=== PATIENT | female | born 1965 | race Asian ===

== ENCOUNTER 2021-03-18 19:03 | Emergency (ER) | payer SELFPAY ==
[~2021-03-18] VITALS: Ht 170.2 cm; Wt 70.0 kg
[2021-03-18] MEDS ORDERED: IBUPROFEN 600MG TABLET PO STA (19:24)
[2021-03-18] MEDS ORDERED: SODIUM CHLORIDE 0.9% 1,000 ML IV ONE (19:30)
[2021-03-18 20:04] LABS: BASOPHILS % 0.4 % (0.0-2.0); EOSINOPHILS % 1.1 % (0.0-5.0); HEMOGLOBIN. 13.1 g/dL (12.0-16.0); LYMPHOCYTES % 29.4 % (20.0-50.0); MEAN CORPUSCULAR HEMOGLOBIN 28.6 pg (28.0-32.0); MEAN CORPUSCULAR VOLUME 87.4 fL (81.0-99.0); MEAN PLATELET VOLUME 8.2 fl (7.4-10.4); MONOCYTES % 9.6 % (2.0-8.0); NEUTROPHILS % 59.5 % (40.0-76.0); PLATELET 221 x1000/uL (130-400); RED BLOOD CELL COUNT 4.58 mill/uL (4.2-5.4); RED CELL DISTRIBUTION WIDTH 12.9 % (11.6-14.6)
[2021-03-18 20:12] LABS: CHLORIDE 102 mEq/L (98-107)
[2021-03-18 21:50] VITALS: BP 130/78
== END 2021-03-18 22:23 | disposition home or self-care (01) ==
LOC: ER 19:03
DX: B34.9 Viral infection, unspecified (principal); Z20.822 Contact with and (suspected) exposure to COVID-19; Z98.890 Other specified postprocedural states
CPT/HCPCS: 36415; 71045; 80053; 85025; 87426; 87804; 93005; 96360; 99285; J7030

== ENCOUNTER 2021-11-26 09:23 | Emergency (ER) | payer MEDICAID, OTHER ==
[~2021-11-26] VITALS: Ht 160 cm; Wt 72.0 kg
[2021-11-26] MEDS ORDERED: LIDOCAINE HCL/PF 1% 10 MG/ML 5ML VIAL INFIL ONE (12:45)
[2021-11-26] MEDS ORDERED: IBUPROFEN 400MG TABLET PO ONE (12:45)
[2021-11-26 12:53] VITALS: BP 162/69
[2021-11-26] MEDS ORDERED: POLY119P2 MT (14:01)
[2021-11-26] MEDS ORDERED: LIDO15CR6 TP (14:01)
[2021-11-26] MEDS ORDERED: HYDR30CR80 TP (14:01)
[2021-11-26] MEDS ORDERED: IBUP-2028 MT (14:01)
== END 2021-11-26 14:36 | disposition home or self-care (01) ==
LOC: ER 09:46
DX: K64.5 Perianal venous thrombosis (principal); R03.0 Elevated blood-pressure reading, without diagnosis of hypertension; Z87.09 Personal history of other diseases of the respiratory system
CPT/HCPCS: 10060; 99283; J3490; Z7610

== ENCOUNTER 2024-08-17 02:15 | Emergency (ER) | payer MEDICAID, OTHER ==
[~2024-08-17] VITALS: Ht 170.2 cm; Wt 73.0 kg
[~2024-08-17 02:15] MED LIST: HYDR30CR80 TP; IBUP-2028 MT; LIDO15CR6 TP; POLY119P2 MT
[2024-08-17 02:42] VITALS: O2SAT 99
[2024-08-17 04:38] VITALS: BP 141/84; PULSE 68; RESP 18; TEMP 36.7; O2SAT 96
== END 2024-08-17 05:52 | disposition home or self-care (01) ==
LOC: ER 02:15
DX: S06.0X0A Concussion without loss of consciousness, initial encounter (principal); S09.8XXA Other specified injuries of head, initial encounter; Z79.899 Other long term (current) drug therapy; X58.XXXA Exposure to other specified factors, initial encounter; Y93.89 Activity, other specified; Y92.89 Other specified places as the place of occurrence of the external cause; Y99.8 Other external cause status
CPT/HCPCS: 71045; 93005; 99284

== ENCOUNTER 2024-08-19 01:51 | Emergency (ER) | payer MEDICAID ==
[~2024-08-19] VITALS: Ht 162.6 cm; Wt 64.0 kg
[2024-08-19 01:54] VITALS: BP 124/84; PULSE 93; RESP 16; TEMP 36.6; O2SAT 98
== END 2024-08-19 03:40 | disposition left against medical advice (07) ==
LOC: ER 01:51
DX: F41.9 Anxiety disorder, unspecified (principal); R00.0 Tachycardia, unspecified; Z53.21 Procedure and treatment not carried out due to patient leaving prior to being seen by health care provider